=== PATIENT | male | born 1935 | race Caucasian/White ===

== ENCOUNTER → 2017-02-19 | Outpatient (CLI) | payer MEDICARE ==
[~2017-02-19] MED LIST: ACET-62 PO; BETA1TAB17 PO; CALC-761 PO; CARB1TAB20 PO; HYDR-4246 PO; LORA0.5T2 PO; MAGN400O4 PO; MEMA28CA PO; MIRT15TA7 PO; MULT-245 PO; PARO-38 PO; POLY15DR57 BOTH EYES; PRAM0.253 PO; RIVA1PAT TD; SENN1TAB79 PO; SIMV20TA6 PO
--- NOTE | 2017-02-19 17:27 | DI ---
Indication: ITS.REASON: M47.817 SPONDY; R26.89 GAIT INSTABILITY; G20 PARKINSON PROCEDURE: LUMBAR SPINE 2-3 VIEWS: Encounter: Initial Comparison: None Findings: Alignment of the lumbar spine is slightly straightened. There are severe chronic appearing compression deformities of the L4 and L5 vertebra. Mild anterior wedging of T12 also appears chronic. Degenerative disk disease at L4-L5 and L5-S1 with degenerative facet change also. Impression: Chronic appearing severe compression fractures of L4 and L5. No definite acute osseous abnormality. .
--- NOTE | 2017-02-19 17:29 | DI ---
Indication: ITS.REASON: M47.817 SPONDY; R26.89 GAIT INSTABILITY; G20 PARKINSON PROCEDURE: THORACIC SPINE 2 VIEW: Encounter: Initial Comparison: Chest x-ray dated November 17, 2014 Findings: Alignment of the thoracic spine show slight exaggeration of the normal thoracic kyphosis. There is wedging of an upper thoracic vertebra, probably T4 or T5 only seen on the lateral view which has worsened or developed since the prior exam. Probable physiologic wedging of T11 and T12 is stable. No other new compression fractures appreciated. Diffuse bony demineralization limiting detection of nondisplaced fractures. Impression: Interval development of an upper thoracic compression fracture, likely at T4 or T5. .
--- NOTE | 2017-02-19 17:30 | DI ---
Indication: ITS.REASON: M47.817 SPONDY; R26.89 GAIT INSTABILITY; G20 PARKINSON PROCEDURE: CERVICAL SPINE 3 VIEWS OR LESS: Encounter: Initial Comparison: None Findings: Motion artifact on the lateral view. Limited visualization of the upper cervical spine on the AP view. Grossly normal alignment of the cervical spine without obvious acute fracture. The C7 and T1 vertebra are not well evaluated on the lateral view. Chronic appearing right clavicular deformity. Bony demineralization. Mild degenerative disk disease at C4-C5 and C5-C6. Degenerative facet changes in the mid to lower cervical spine. Bilateral internal carotid area calcifications. Impression: Limited exam. No acute fracture. Degenerative change. .
== END ==
LOC: IMA 15:56
PROVIDERS: ATTEND Psychiatry & Neurology Neurology
DX: M50.321 Other cervical disc degeneration at C4-C5 level (principal); M50.322 Other cervical disc degeneration at C5-C6 level; M47.892 Other spondylosis, cervical region; M48.54XA Collapsed vertebra, not elsewhere classified, thoracic region, initial encounter for fracture; M48.56XA Collapsed vertebra, not elsewhere classified, lumbar region, initial encounter for fracture; R26.89 Other abnormalities of gait and mobility; G20 Parkinson's disease; M47.817 Spondylosis without myelopathy or radiculopathy, lumbosacral region